=== PATIENT | female | born 1990 | race Caucasian/White ===

== ENCOUNTER 2018-01-04 09:30 | Inpatient (IN) | payer OTHER ==
[~2018-01-04] VITALS: Ht 160 cm; Wt 3.6 kg
[~2018-01-04 09:30] MED LIST: CEPHALEXIN500 M1; ZANTAC15 MG/ML; ZOFRAN4 MG
[2018-01-14] MEDS ORDERED: PRENATAL FORMU1 EAC1 PO (06:26)
[2018-01-14] MEDS ORDERED: FOLIC ACID1 MG PO (06:27)
[2018-01-17] MEDS ORDERED: OXYC1TAB9 PO (12:53)
[2018-01-17] MEDS ORDERED: POLY119PG PO (12:53)
== END 2018-01-17 14:01 | DRG 766 ==
LOC: O/R 01-14 05:45 → OB/GYN 01-14 05:45 → LDR 01-14 07:00 → OB/GYN 01-14 15:02
PROVIDERS: Obstetrics & Gynecology
PROC: 0UT70ZZ Resection of Bilateral Fallopian Tubes, Open Approach (ICD-10-PCS; 2018-01-14)
PROC: 4A1HXCZ Monitoring of Products of Conception, Cardiac Rate, External Approach (ICD-10-PCS; 2018-01-14)
PROC: 4A033R1 Measurement of Arterial Saturation, Peripheral, Percutaneous Approach (ICD-10-PCS; 2018-01-14)
PROC: 10D00Z1 Extraction of Products of Conception, Low, Open Approach (ICD-10-PCS; principal; 2018-01-14 07:00)
DX: O34.211 Maternal care for low transverse scar from previous cesarean delivery (principal); Z3A.38 38 weeks gestation of pregnancy; Z37.0 Single live birth; Z30.2 Encounter for sterilization; Z64.1 Problems related to multiparity